=== PATIENT | male | born 1980 | race Hispanic/Latino ===

== ENCOUNTER → 2023-01-20 | Outpatient (CLI) | payer BC ==
[~2023-01-20] MED LIST: ASPI-1005 PO
== END | disposition home or self-care (01) ==
LOC: RAH 11:24
PROVIDERS: ATTEND Internal Medicine
DX: R39.89 Other symptoms and signs involving the genitourinary system (principal)
CPT/HCPCS: 76775

== ENCOUNTER → 2023-02-01 | Outpatient (CLI) | payer BC | END | disposition home or self-care (01) | LOC: RAH 13:05 | PROVIDERS: ATTEND Internal Medicine | DX: R39.89 Other symptoms and signs involving the genitourinary system (principal); N30.80 Other cystitis without hematuria; K57.30 Diverticulosis of large intestine without perforation or abscess without bleeding | CPT/HCPCS: 72192 ==

== ENCOUNTER → 2023-02-18 | Outpatient (CLI) | payer BC ==
[~2023-02-18] MED LIST changes: +DIATR MEGLU/DIATRIZOATE SODIUM 30 ML BOTTLE ONE; +IOHEXOL 350 MG/ML 100ML INFUS..BTL IV ONE
== END | disposition home or self-care (01) ==
LOC: RAH 07:30
PROVIDERS: ATTEND Internal Medicine
DX: N32.2 Vesical fistula, not elsewhere classified (principal); M47.815 Spondylosis without myelopathy or radiculopathy, thoracolumbar region; I70.0 Atherosclerosis of aorta
CPT/HCPCS: 74177; Q9963; Q9967

== ENCOUNTER → 2023-05-06 | Outpatient (CLI) | payer BC ==
[~2023-05-06] MED LIST changes: -DIATR MEGLU/DIATRIZOATE SODIUM 30 ML BOTTLE ONE; -IOHEXOL 350 MG/ML 100ML INFUS..BTL IV ONE; +TAMS-1 PO
== END | disposition home or self-care (01) ==
LOC: RAH 11:25
PROVIDERS: ATTEND Internal Medicine
DX: K40.90 Unilateral inguinal hernia, without obstruction or gangrene, not specified as recurrent (principal)
CPT/HCPCS: 76882

== ENCOUNTER → 2024-07-27 | Outpatient (CLI) | payer BC ==
[~2024-07-27] MED LIST changes: -ASPI-1005 PO
--- NOTE | 2024-07-27 12:43 | HMCIMG ---
HIP UNILAT 2-3VW RIGHT HISTORY: Pain COMPARISON: None TECHNIQUE: 4 images of right hip were obtained. FINDINGS: There is no acute displaced fracture or dislocation. Mild degenerative changes are seen. IMPRESSION: 1. Findings as described above.
== END | disposition home or self-care (01) ==
LOC: RAH 10:48
PROVIDERS: ATTEND Internal Medicine
DX: M16.11 Unilateral primary osteoarthritis, right hip (principal); M25.551 Pain in right hip
CPT/HCPCS: 73502